=== PATIENT | female | born 1980 | race Caucasian/White ===

== ENCOUNTER 2019-03-22 19:14 | Emergency (ER) | payer SELFPAY ==
[~2019-03-22] VITALS: Ht 157.5 cm; Wt 81.6 kg
[2019-03-22 20:13] LABS: CLARITY,URINE CLEAR (CLEAR); COLOR,URINE YELLOW (YELLOW); LEUKOCYTE ESTERASE ,URINE NEGATIVE (NEGATIVE); NITRITE,URINE NEGATIVE (NEGATIVE); PROTEIN,URINE DIPSTICK NEGATIVE (NEGATIVE)
[2019-03-22 20:14] LABS: BILIRUBIN,URINE NEGATIVE (NEGATIVE); KETONES,URINE NEGATIVE (NEGATIVE); PREGNANCY TEST, URINE NEGATIVE (NEGATIVE); URINE UROBILINOGEN 0.2 mg/dL (0.2 - 1)
[2019-03-22 20:20] LABS: BACTERIA,URINE FEW /HPF; EPITHELIAL CELLS,URINE MODERATE /LPF; WBC,URINE (MAN) 0-5 /HPF (0-5)
--- NOTE | 2019-03-22 21:51 | Diagnostic Imaging Report ---
EXAM: Abdomen Radiograph 1 View INDICATION: Constipation COMPARISON: None FINDINGS: Cholecystectomy clips in the right upper quadrant. No lines or tubes. Moderate volume of stool in the colon. No dilated loops of small bowel. No abnormal abdominal calcifications.. No abnormal soft tissue masses. No pneumoperitoneum. No acute osseous abnormality. Curved cylindrical lucency in the lower midpelvis may represent a tampon. IMPRESSION: Moderate colonic stool burden, correlate for constipation. Signed by: Walker Levy DO on 03/22/2019 9:47 PM
--- OUTSIDE RECORDS SUMMARY | 2019-04-01 10:40 | XMS REPORT ---
[facility] Address Unknown Phone Unavailable Care Team Providers Care Vp Clinical Research Name Role Phone David TELLO Unavailable Unavailable Payers Payer Name Policy Type Policy Number Effective Date Expiration Date Problems This patient has no known problems. Allergies, Adverse Reactions, Alerts Allergy Name Allergy Type Status Severity Reaction(s) Onset Date Inactive Date Treating Clinician Comments penicillin G DA Active U 2014-09-21 00:00:00 Medications This patient has no known medications. 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 No lines or tubes. Moderate volume of stool in the colon. No dilated loops of small bowel. No abnormal abdominal calcifications.. No abnormal soft tissue masses. No pneumoperitoneum. No acute osseous abnormality. Curved cylindrical lucency in the lower m idpelvis may represent a tampon. IMPRESSION: Moderate colonic stool burden, correlate for constipation. Signed by: Walker Levy DO on 03/22/2019 9:47 PM Dictated By: WALKER LEVY DO 46 Transcribed By: CHIDI on 03/22/192146 COPY TO: LETITIA BELL NP COMPREHENSIVE METABOLIC PANEL 2019-03-13 17:58:00 SODIUM (test code=NA) 141 mmol/L 134-147 POTASSIUM (test code=K) 3.5 mmol/L 3.4-5.0 CHLORIDE (test code=CL) 109 mmol/L 100-108 CARBON DIOXIDE (test code=CO2) 27 mmol/L 21-32 ANION GAP (test code=GAP) 5.0 GAP calc 4.0-15.0 GLUCOSE (test code=GLU) 88 MG/DL 70-110 BLOOD UREA NITROGEN (test code=BUN) 8 MG/DL 7-18 GLOMERULAR FILTRATION RATE (test code=GFR) >=60 max estimate estGFR >60 CREATININE (test code=CREAT) 0.7 MG/DL 0.6-1.0 TOTAL PROTEIN (test code=PROT) 7.3 G/DL 6.4-8.2 ALBUMIN (test code=ALB) 3.4 G/DL 3.4-5.0 GLOBULIN (test code=GLOB) 3.9 GM/dL ALBUMIN/GLOBULIN RATIO (test code=A/G) 0.9 RATIO 1.2-2.2 CALCIUM (test code=CA) 8.6 MG/DL 8.5-10.1 BILIRUBIN TOTAL (test code=BILT) 0.60 MG/DL 0.2-1.2 SGOT/AST (test code=AST) 15 Unit/L 15-37 SGPT/ALT (test code=ALT) 24 Unit/L 12-78 ALKALINE PHOSPHATASE TOTAL (test code=ALKP) 92 Unit/L 45-117 Completed by Nursing: [id number] 17:58:00* Test Item Value Reference Range Comments TROPONIN-I (test code=TROPI) < 0.015 NG/ML 0.000-0.045 Negative: </=0.045 Positive: >/=0.046 Correlation with serial results, other cardiac markers, and clinical findings is necessary to determine the clinical significance of this result. Quantitative results using different methodologies should not be compared to one another as numerical results may varyby method. Completed by Nursing: NOCBC W/AUTO [id number] 16:53:00* Test Item Value Reference Range Comments WHITE BLOOD CELL (test code=WBC) 9.8 K/mm3 3.5-11.0 RED BLOOD CELL (test code=RBC) 4.77 M/mm3 4.70-6.10 HEMOGLOBIN (test code=HGB) 14.4 G/DL 10.4-14.9 HEMATOCRIT (test code=HCT) 42.2 % 31.5-44.1 MEAN CELL VOLUME (test code=MCV) 88.5 Fl 84.5-98.6 MEAN CELL HGB (test code=MCH) 30.2 pg 27.0-34.2 MEAN CELL HGB CONCETRATION (test code=MCHC) 34.1 G/DL 31.5-34.0 RED CELL DISTRIBUTION WIDTH (test code=RDW) 15.8 SD 11.5-14.5 PLATELET COUNT (test code=PLT) 266.0 K/mm3 150-450 MEAN PLATELET VOLUME (test code=MPV) 9.80 fL 7.0-10.5 NEUTROPHIL % (test code=NT%) 61.1 % 40-76 LYMPHOCYTE % (test code=LY%) 30.0 % 20.5-51.1 MONOCYTE % (test code=MO%) 7.5 % 1.7-9.3 EOSINOPHIL % (test code=EO%) 1.3 % 0.0-6.0 BASOPHIL % (test code=BA%) 0.1 % 0.0-2.0 NEUTROPHIL # (test code=NT#) 5.98 K/mm3 1.8-7.6 LYMPHOCYTE # (test code=LY#) 2.9 K/mm3 0.6-3.2 MONOCYTE # (test code=MO#) 0.7 K/mm3 0.3-1.1 EOSINOPHIL # (test code=EO#) 0.1 K/mm3 0.0-0.4 BASOPHIL # (test code=BA#) 0.0 K/mm3 0.0-0.1 MANUAL DIFF REQUIRED (test code=MDIFF) NO DIFF/SCN CRITERIA - XR CHEST 1 [id number] 16:40:00 Name: CYRUS MEIER [place] : 1980 Age/S: 38 / F [address] Unit #: [id number] Loc: [place] [address] Phys: Norman Tillman MD Acct: [id number] Dis Date: Status: PRE ER PHONE #: [phone] Exam Date: 03/13/2019 1625 FAX #: Reason: chest pain EXAMS: CPT: [id number] XR CHEST 1 V 38754 Fluoro Time: DAP (Gy m2): Air Kerma (mGy): LOCATION: H43 EXAM: - XR CHEST 1 V HISTORY: chest pain TECHNIQUE: Frontal view of the chest. COMPARISON: None. FINDINGS: The lungs are adequately inflated and clear. No evidence of pneumothorax or pleural effusion. Normal heart size. Mediastinal contours are within normal limits. Osseous structures are intact. IMPRESSION: No evidence of acute cardiopulmonary disease. at 1640 Reported and signed by: Fabienne Hicks M.D. CC: Norman Tillman MD; Alessandra Mcdowell MD PAGE 1 Signed Report Name: CYRUS MEIER [place] : 1980 Age/S: 38 / F [address] [address] Unit #: [id number] Loc: [place] [address] Phys: Norman Tillman MD Acct: [id number] Dis Date: Status: PRE ER PHONE #: [phone] Exam Date: 03/13/2019 162 FAX #: Reason: chest pain EXAMS: CPT: [id number] XR CHEST 1 V 70639 Fluoro Time: DAP (Gy m2): Air Kerma (mGy): < Continued> Technologist: RT Danica(R) Trnscb Date/Time: 03/13/2019 (5774) [id number] Orig Print D/T: S: 03/13/2019 (6486) PAGE 2 Signed Report
== END 2019-03-22 22:17 | disposition home or self-care (01) ==
LOC: ER 19:14
DX: K59.00 Constipation, unspecified (principal); F17.200 Nicotine dependence, unspecified, uncomplicated; Z88.0 Allergy status to penicillin
CPT/HCPCS: 74018; 81001; 81025; 99283